=== PATIENT | female | born 1990 | race Caucasian/White ===

== ENCOUNTER → 2021-02-09 | Day surgery (SDC) | payer OTHER ==
[~2021-02-09] MED LIST: AMPHETAMINE SAL15 MG PO; CLONAZEPAM1 MG PO; DEXMETHYLPHENID20 MG PO; DICYCLOMINE HCL20 MG PO; FENTANYL CITRATE/PF 100MCG/2 ML INJ ONE; GLUCAGON FOR INJ 1 MG VIAL ONE; LARIN 24 FE 11 EACH PO; LIDOCAINE HCL 2% LOCAL INJ 5 ML SDV VIAL INJ ONE; METOCLOPRAMIDE HCL 10 MG/2ML VIAL ONE; MIDAZOLAM HCL 2 MG/2 ML VIAL ONE; PANTOPRAZOLE 40 MG 10ML VIAL ONE; PROPOFOL IV EMULSION 10 MG/ML 20 ML VIAL ONE; ULTRAM50 MG PO
[2021-02-09 10:24] VITALS: BP 122/76
== END | disposition home or self-care (01) ==
LOC: OR 08:01
PROVIDERS: ATTEND Internal Medicine Gastroenterology
DX: K29.70 Gastritis, unspecified, without bleeding (principal); K25.9 Gastric ulcer, unspecified as acute or chronic, without hemorrhage or perforation; K52.9 Noninfective gastroenteritis and colitis, unspecified; K20.90 Esophagitis, unspecified without bleeding; K63.89 Other specified diseases of intestine; K21.9 Gastro-esophageal reflux disease without esophagitis; K64.8 Other hemorrhoids; M54.9 Dorsalgia, unspecified; M54.2 Cervicalgia; F41.9 Anxiety disorder, unspecified; Z01.812 Encounter for preprocedural laboratory examination; Z20.822 Contact with and (suspected) exposure to COVID-19
CPT/HCPCS: 36415; 43239; 43450; 45380; 81025; 84443; C9113; J1610; J2001; J2250; J2704; J2765; J3010; U0002; 45378